=== PATIENT | male | born 1995 | race Asian ===

== ENCOUNTER 2019-01-23 13:14 | Emergency (ER) | payer OTHER ==
[~2019-01-23] VITALS: Ht 176 cm; Wt 60.0 kg
[2019-01-23 13:19] VITALS: TEMP 98
[2019-01-23] MEDS ORDERED: CARAFATE S1 GM/10 ML PO (14:20)
[2019-01-23 15:43] VITALS: BP 111/70; PULSE 58
== END 2019-01-23 15:43 | disposition home or self-care (01) ==
LOC: COL.ER 13:14
DX: S10.11XA Abrasion of throat, initial encounter (principal)

== ENCOUNTER 2019-10-15 21:29 | Emergency (ER) | payer SELFPAY ==
[~2019-10-15] VITALS: Ht 176 cm; Wt 55.0 kg
[~2019-10-15 21:29] MED LIST: CARAFATE S1 GM/10 ML PO
[2019-10-15 21:35] VITALS: BP 119/67; TEMP 98.5
[2019-10-16] VITALS: PULSE 87
== END 2019-10-16 | disposition home or self-care (01) ==
LOC: COL.ER 21:29
DX: L30.9 Dermatitis, unspecified (principal)